=== PATIENT | male | born 1990 | race Caucasian/White ===

== ENCOUNTER 2017-04-09 20:25 | Emergency (ER) | payer SELFPAY ==
[2017-04-09 20:52] VITALS: BP 148/99
[2017-04-09 23:57] LABS: Hematocrit 43 % (42-52); Hemoglobin 14.6 g/dl (14.0-18.0); Mean Corpuscular HGB Conc 34 g/dl (31-36); Mean Corpuscular Hemoglobin 32 pg (27-31); Mean Corpuscular Volume 93 fL (80-94); Mean Platelet Volume 8 um3 (7.4-10.4); Red Blood Count 4.63 10^6/ul (4.0-5.4); Red Cell Distribution Width 13 % (10.5-15); White Blood Count 9.1 10^3/ul (3.5-10.8)
[2017-04-09 23:59] LABS: Urine Bilirubin Negative (Negative); Urine Glucose Negative (Negative); Urine Nitrite Negative (Negative)
[2017-04-10 00:13] LABS: ALT 16 U/L (7-52); Acetaminophen < 15 mcg/mL; Albumin 4.4 g/dL (3.2-5.2); Alcohol < 10 mg/dL (<10); Alkaline Phosphatase 55 U/L (34-104); BUN/Creatinine Ratio 22.3 (8-20); Blood Urea Nitrogen 21 mg/dL (6-24); CO2 Carbon Dioxide 28 mmol/L (22-32); Calcium 9.5 mg/dL (8.6-10.3); Chloride 107 mmol/L (101-111); EGFR African American 123.8 (>60); EGFR Non-African American 96.3 (>60); Globulin 2.8 g/dL (2-4); Glucose 86 mg/dL (70-100); Salicylate < 2.50 mg/dL (<30); Sodium 141 mmol/L (133-145); Total Protein 7.2 g/dL (6.4-8.9)
[2017-04-10 00:22] LABS: AST 13 U/L (13-39); Anion Gap 6 mmol/L (2-11); Benzodiazepine Urine Screen None Detected (None Detect); Potassium 4.1 mmol/L (3.5-5.0); TSH (Thyroid Stimulating Horm) 4.38 mcIU/mL (0.34-5.60)
== END 2017-04-10 04:32 | disposition home or self-care (01) ==
LOC: ED 20:25
DX: F41.9 Anxiety disorder, unspecified (principal)
CPT/HCPCS: 36415; 80053; 80307; 80320; 80329; 81003; 84443; 85025; 99282; G0480